=== PATIENT | female | born 1995 ===

== ENCOUNTER → 2018-04-22 | Outpatient (REF) | payer OTHER | LOC: M LAB REF 19:13 | PROVIDERS: ATTEND Physician Assistant | DX: J11.1 Influenza due to unidentified influenza virus with other respiratory manifestations (principal) ==

== ENCOUNTER → 2020-09-01 | Outpatient (CLI) | payer SELFPAY | LOC: M LABSMTC 12:13 | PROVIDERS: ATTEND Pediatrics | DX: Z11.52 Encounter for screening for COVID-19 (principal) ==